=== PATIENT | male | born 1960 | race Hispanic/Latino ===

== ENCOUNTER 2020-01-13 22:04 | Emergency (ER) | payer OTHER, SELFPAY ==
[2020-01-13] MEDS ORDERED: ALBUTEROL INHALER 90MCG/INH IH ONE (22:53)
[2020-01-13] MEDS ORDERED: ACETAMINOPHEN EXTRA STRENGTH 500 MG TABLET ONE (22:53)
== END 2020-01-13 23:07 | disposition home or self-care (01) ==
LOC: EDH 22:04
DX: R06.02 Shortness of breath (principal); R05 Cough; Z20.828 Contact with and (suspected) exposure to other viral communicable diseases

== ENCOUNTER 2022-07-24 13:13 | Emergency (ER) | payer OTHER ==
[~2022-07-24] VITALS: Ht 177.8 cm; Wt 113.4 kg
[2022-07-24 14:39] VITALS: BP 145/84
[2022-07-24] MEDS ORDERED: TETANUS/DIPHTHERIA TOXOID [ADULT] 0.5 ML VIAL IM ONE (15:00)
[2022-07-24] MEDS ORDERED: LIDOCAINE HCL 1% 20 ML VIAL ONE (15:39)
[2022-07-24] MEDS ORDERED: LIDOCAINE HCL 1% 20 ML VIAL INJ SCH (16:00)
[2022-07-24] MEDS ORDERED: CEFAZOLIN SODIUM 1 GM VIAL IM SCH (16:30)
[2022-07-24] MEDS ORDERED: BACITRACIN 1 EACH PACKET TP ONE (17:19)
== END 2022-07-24 17:23 | disposition home or self-care (01) ==
LOC: EDH 13:13
DX: S71.111A Laceration without foreign body, right thigh, initial encounter (principal); S93.402A Sprain of unspecified ligament of left ankle, initial encounter; I10 Essential (primary) hypertension; E78.00 Pure hypercholesterolemia, unspecified; M19.90 Unspecified osteoarthritis, unspecified site; W22.8XXA Striking against or struck by other objects, initial encounter; Y93.89 Activity, other specified; Y92.89 Other specified places as the place of occurrence of the external cause; Y99.8 Other external cause status
CPT/HCPCS: 99284; 90714; 73610; 73552; 73562; 90471; 12002; 96372; J0690

== ENCOUNTER 2023-02-06 02:15 | Emergency (ER) | payer BC, OTHER ==
[~2023-02-06] VITALS: Ht 177.8 cm; Wt 102.1 kg
[2023-02-06 02:43] LABS: BASOPHILS % (AUTO) 0.7 % (0.0-5.0); EOSINOPHILS % (AUTO) 1.8 % (0.0-8.0); HEMATOCRIT 40.8 % (42-54); LYMPHOCYTES % (AUTO) 30.7 % (21.0-51.0); MEAN CORPUSCULAR HEMOGLOBIN 28.1 pg (27.0-33.0); MEAN CORPUSCULAR HGB CONC 33.1 g/dL (32.0-36.0); MONOCYTES % (AUTO) 9.1 % (3.0-13.0); NEUTROPHILS % (AUTO) 57.3 % (40.0-77.0); PLATELET COUNT (AUTO) 242 K/uL (130-400); RED CELL DISTRIBUTION WIDTH 12.6 % (11.0-15.5); WHITE BLOOD COUNT (AUTO) 7.6 K/uL (4.8-10.8)
[2023-02-06 03:00] LABS: CREATININE 1.3 mg/dL (0.5-1.5); POTASSIUM 3.5 mmol/L (3.5-5.1)
[2023-02-06] MEDS ORDERED: ALPRAZOLAM 0.5 MG TABLET PO ONE (03:00)
[2023-02-06 03:04] LABS: ALBUMIN 3.4 g/dL (3.5-5.0)
[2023-02-06 04:25] VITALS: BP 141/95; PULSE 75; RESP 18; O2SAT 98
== END 2023-02-06 04:34 | disposition home or self-care (01) ==
LOC: EDH 02:15
DX: I10 Essential (primary) hypertension (principal); F41.9 Anxiety disorder, unspecified; E78.00 Pure hypercholesterolemia, unspecified; M19.90 Unspecified osteoarthritis, unspecified site; Z79.899 Other long term (current) drug therapy
CPT/HCPCS: 36415; 80053; 84484; 85025; 93005